=== PATIENT | male | born 1975 | race Caucasian/White ===

== ENCOUNTER 2021-12-29 16:53 | Emergency (ER) | payer OTHER ==
[~2021-12-29 16:53] MED LIST: BACTRIM DS TAB1 EACH PO; BACTROBAN NASAL1 GM TOP; CYMBALTA 30MG C30 MG PO; DIAZEPAM 5MG TAB5 MG PO; FLEXERIL5 MG PO; VOLTAREN **OUT50 MG PO; [UNRECOGNIZED DRUG - OTHER]
[2021-12-29 17:27] LABS: BASOPHIL 1.2 % (0-2); EOSINOPHIL 6.7 % (0-5); HCT 42.2 % (42.0-52.0); HGB 14.3 g/dl (13.2-18.0); LYMPHOCYTE 29.6 % (15-48); MCH 30.4 pg (25.0-31.0); MCHC 33.9 g/dL (32.0-36.0); MCV 89.6 fL (78.0-100.0); MONOCYTE 10.1 % (0-12); NEUTROPHIL 52.1 % (41-80); NRBC 0; PLT 262 K/uL (150-400); RBC 4.71 M/uL (4.70-6.00); RDW 12.2 % (11.5-14.0); WBC 6.7 K/uL (4.0-10.5)
[2021-12-29 17:35] LABS: INR 1.01 (0.9-1.2); PROTHROMBIN TIME 12.7 SECONDS (11.8-13.4); PTT 28.5 SECONDS (24.4-34.7)
[2021-12-29 17:45] LABS: BILIRUBIN NEGATIVE (NEGATIVE); BLOOD NEGATIVE Ery/uL (NEGATIVE); CLARITY CLEAR (CLEAR); COLOR YELLOW (YELLOW); GLUCOSE (U) NORMAL (NORMAL); LEUKOCYTES NEGATIVE Leu/uL (NEGATIVE); NITRITE NEGATIVE (NEGATIVE); PROTEIN NEGATIVE (NEGATIVE); SPECIFIC GRAVITY >=1.030 (1.001-1.030); UROBILINOGEN 0.2 mg/dL (0.2-1.0); pH 5.5 (5.0-9.0)
[2021-12-29 17:47] LABS: AMPHETAMINES POSITIVE (NEGATIVE); BARBITURATES NEGATIVE (NEGATIVE); ECSTASY (MDMA) NEGATIVE (NEGATIVE); MARIJUANA (THC) NEGATIVE (NEGATIVE); METHADONE NEGATIVE (NEGATIVE); OPIATES NEGATIVE (NEGATIVE); OXYCODONE NEGATIVE (NEGATIVE)
[2021-12-29 17:48] LABS: CREATININE 1.06 mg/dL (0.67-1.17); POTASSIUM 3.5 mmol/L (3.5-5.1)
== END 2021-12-29 20:10 | disposition left against medical advice (07) ==
LOC: FER 16:53
PROVIDERS: Nurse Practitioner Family
DX: R07.89 Other chest pain (principal); F17.210 Nicotine dependence, cigarettes, uncomplicated; F15.90 Other stimulant use, unspecified, uncomplicated; Z53.29 Procedure and treatment not carried out because of patient's decision for other reasons
CPT/HCPCS: 36415; 71045; 80048; 80305; 81003; 84484; 85025; 85610; 85730; 93005; J7030